=== PATIENT | female | born 1940 | race Caucasian/White ===

== ENCOUNTER 2017-05-20 10:22 | Day surgery (SDC) | payer MEDICARE, OTHER ==
[~2017-05-20] VITALS: Ht 154.9 cm; Wt 56.6 kg
[~2017-05-20 10:22] MED LIST: AMIT10 PO; Amitriptyline H25 MG PO; CHOL10002 PO; GABA300T24 PO; GRALISE600 MG PO; LEVSOD75 PO; Omeprazole20 M1 PO; THYROID MED
--- NOTE | 2017-05-20 12:12 | NUR ---
05/20/17 1212 Nghia Pimentel PT UPDATED ON DELAY IN ROOM DUE TO PREVIOUS CASE RUNNING LONG. PT DENIES ANY NEEDS AT THIS TIME. WILL CONTINUE TO KEEP PT UPDATED.
== END 2017-05-20 13:52 | disposition home or self-care (01) ==
LOC: ORSCSDS 10:22
PROVIDERS: Internal Medicine Gastroenterology
PROC: 0DBK8ZX Excision of Ascending Colon, Via Natural or Artificial Opening Endoscopic, Diagnostic (ICD-10-PCS; principal; 2017-05-20 11:30)
PROC: 0DBH8ZX Excision of Cecum, Via Natural or Artificial Opening Endoscopic, Diagnostic (ICD-10-PCS; principal; 2017-05-20 11:30)
DX: Z12.11 Encounter for screening for malignant neoplasm of colon (principal); D12.2 Benign neoplasm of ascending colon; D12.0 Benign neoplasm of cecum; K57.30 Diverticulosis of large intestine without perforation or abscess without bleeding; J45.909 Unspecified asthma, uncomplicated; E03.9 Hypothyroidism, unspecified; R74.8 Abnormal levels of other serum enzymes; Z79.899 Other long term (current) drug therapy
CPT/HCPCS: 88305; J7120

== ENCOUNTER → 2018-02-14 | Outpatient (CLI) | payer MEDICARE, OTHER ==
[~2018-02-14] MED LIST changes: +VITAMIN D2000 UNIT PO
== END | disposition home or self-care (01) ==
LOC: LAB SHORT 16:35 → LAB EV 16:35
DX: N39.0 Urinary tract infection, site not specified (principal)
CPT/HCPCS: 87077; 87086; 87186

== ENCOUNTER → 2018-08-21 | Outpatient (CLI) | payer MEDICARE, OTHER ==
[2018-08-21 13:12] LABS: BASOPHILS ABSOLUTE AUTO 0.08 K/mm3 (0.00-0.23); BASOPHILS PERCENT AUTO 1 % (0-2); EOSINOPHILS ABSOLUTE AUTO 0.11 K/mm3 (0.00-0.68); EOSINOPHILS PERCENT AUTO 2 % (0-6); Hematocrit 40.3 % (33.0-51.0); Hemoglobin 13.6 g/dL (11.5-16.0); IMMATURE GRAN ABSOLUTE AUTO 0.03 K/mm3 (0.00-0.10); IMMATURE GRAN PERCENT AUTO 1 % (0-1); LYMPHOCYTES ABSOLUTE AUTO 1.51 K/mm3 (0.84-5.20); LYMPHOCYTES PERCENT AUTO 27 % (21-46); MONOCYTES ABSOLUTE AUTO 0.52 K/mm3 (0.16-1.47); MONOCYTES PERCENT AUTO 9 % (4-13); Mean Corpuscular HGB 31.1 pg (26.0-34.0); Mean Corpuscular HGB Conc 33.7 g/dL (31.5-36.5); Mean Corpuscular Volume 92 fL (80-100); Mean Platelet Volume 11.2 fL (9.1-12.4); NEUTROPHILS ABSOLUTE AUTO 3.36 K/mm3 (1.96-9.15); NEUTROPHILS PERCENT AUTO 60 % (41-73); Platelet Count 229 K/mm3 (150-400); RDW Coefficient Variation 12.7 % (11.7-14.2); Red Blood Cell Count 4.37 M/mm3 (3.80-5.20); White Blood Cell Count 5.61 K/mm3 (4.00-11.30)
[2018-08-21 14:14] LABS: Alanine Aminotransfer (ALT/SGP 15 U/L (12-78); Albumin, Blood 3.5 g/dL (3.4-5.0); Albumin/Globulin Ratio 1.1 (0.8-1.8); Alk Phos 90 U/L (50-136); Anion Gap 10 mmol/L (6-16); Aspartate Aminotrans (AST/SGOT 15 U/L (12-37); Blood Urea Nitrogen 23 mg/dL (8-24); Bun/Creatinine Ratio 32.9 (12.0-20.0); CO2, Blood 25 mmol/L (21-32); CPK Creatine Kinase 72 U/L (26-193); Chloride, Blood 107 mmol/L (98-108); Globulin, Blood 3.3 g/dL (2.2-4.0); Glomerular Filtration Rate >60 (60-); Glucose, Blood 100 mg/dL (70-99); Potassium, Blood 3.7 mmol/L (3.5-5.5); Sodium, Blood 142 mmol/L (136-145); Total Protein, Blood 6.8 g/dL (6.4-8.2)
[2018-08-21 14:16] LABS: Troponin I <0.015 ng/mL (0.000-0.040)
== END | disposition home or self-care (01) ==
LOC: LAB SHORT 13:04 → LAB EV 13:04
PROVIDERS: Physician Assistant
DX: R07.9 Chest pain, unspecified (principal); R53.83 Other fatigue
CPT/HCPCS: 80053; 82550; 84443; 84484; 85025; 85379

== ENCOUNTER 2018-08-24 14:02 | Observation (INO) | payer MEDICARE, OTHER ==
[~2018-08-24] VITALS: Ht 154.9 cm; Wt 57.8 kg
[~2018-08-24 14:02] MED LIST changes: -VITAMIN D2000 UNIT PO
[2018-08-24 14:33] LABS: BASOPHILS ABSOLUTE AUTO 0.08 K/mm3 (0.00-0.23); BASOPHILS PERCENT AUTO 1 % (0-2); EOSINOPHILS ABSOLUTE AUTO 0.06 K/mm3 (0.00-0.68); EOSINOPHILS PERCENT AUTO 1 % (0-6); Hematocrit 43.7 % (33.0-51.0); Hemoglobin 14.4 g/dL (11.5-16.0); IMMATURE GRAN ABSOLUTE AUTO 0.05 K/mm3 (0.00-0.10); IMMATURE GRAN PERCENT AUTO 1 % (0-1); LYMPHOCYTES ABSOLUTE AUTO 1.44 K/mm3 (0.84-5.20); LYMPHOCYTES PERCENT AUTO 20 % (21-46); MONOCYTES ABSOLUTE AUTO 0.43 K/mm3 (0.16-1.47); MONOCYTES PERCENT AUTO 6 % (4-13); Mean Corpuscular Volume 94 fL (80-100); Mean Platelet Volume 10.8 fL (9.1-12.4); NEUTROPHILS ABSOLUTE AUTO 5.32 K/mm3 (1.96-9.15); NEUTROPHILS PERCENT AUTO 72 % (41-73); Platelet Count 243 K/mm3 (150-400); RDW Coefficient Variation 12.6 % (11.7-14.2); RDW Standard Deviation 43.3 fL (35.1-46.3); Red Blood Cell Count 4.65 M/mm3 (3.80-5.20); White Blood Cell Count 7.38 K/mm3 (4.00-11.30)
[2018-08-24 14:51] LABS: Alanine Aminotransfer (ALT/SGP 17 U/L (12-78); Albumin, Blood 3.7 g/dL (3.4-5.0); Albumin/Globulin Ratio 0.9 (0.8-1.8); Alk Phos 94 U/L (50-136); Anion Gap 8 mmol/L (6-16); Aspartate Aminotrans (AST/SGOT 19 U/L (12-37); Bilirubin, Total 0.7 mg/dL (0.1-1.0); Blood Urea Nitrogen 23 mg/dL (8-24); Bun/Creatinine Ratio 34.4 (12.0-20.0); CO2, Blood 24 mmol/L (21-32); Chloride, Blood 104 mmol/L (98-108); Creatinine, Blood 0.67 mg/dL (0.40-1.00); Globulin, Blood 4.1 g/dL (2.2-4.0); Glomerular Filtration Rate >60 (60-); Glucose, Blood 134 mg/dL (70-99); Magnesium, Blood 2.1 mg/dL (1.6-2.4); Potassium, Blood 3.8 mmol/L (3.5-5.5); Sodium, Blood 136 mmol/L (136-145); Total Protein, Blood 7.8 g/dL (6.4-8.2); Troponin I <0.015 ng/mL (0.000-0.040)
[2018-08-24 17:28] LABS: CPK Creatine Kinase 64 U/L (26-193); Creatine Kinase MB Index 3.1 (0.0-4.0); Troponin I <0.015 ng/mL (0.000-0.040)
[2018-08-24 18:16] LABS: Source, Urine Clean Catch
[2018-08-24 18:23] LABS: Bilirubin, Urine Neg (Neg); Blood, Urine Neg (Neg); Glucose Qualitative, Urine Neg (Neg); Ketones, Urine Neg (Neg); Leukocyte Esterase, Urine 1+ (Neg); Nitrite, Urine Neg (Neg); Protein, Urine Neg (Neg); Specific Gravity, Urine 1.015 (1.003-1.022); Urobilinogen, Urine NORM (Normal); pH, Urine 6.5 (5.0-8.0)
[2018-08-24 18:34] LABS: Appearance, Urine Clear (Clear); Color, Urine Pale Yellow (P-Yellow)
[2018-08-24 18:36] LABS: Bacteria Rare /hpf; Red Blood Cells, Urine Rare /hpf (0-2); Squamous Epithelial Cells Few /hpf (Few); Transitional Epithelial Cells Rare /hpf (0-Rare); White Blood Cells, Urine Rare /hpf (0-5)
[2018-08-24 22:49] LABS: Troponin I <0.015 ng/mL (0.000-0.040)
[2018-08-24 22:55] LABS: CPK Creatine Kinase 68 U/L (26-193); Creatine Kinase MB 1.9 ng/mL (0.0-3.6); Creatine Kinase MB Index 2.8 (0.0-4.0)
[2018-08-25 06:22] LABS: BASOPHILS ABSOLUTE AUTO 0.06 K/mm3 (0.00-0.23); BASOPHILS PERCENT AUTO 1 % (0-2); EOSINOPHILS ABSOLUTE AUTO 0.15 K/mm3 (0.00-0.68); EOSINOPHILS PERCENT AUTO 3 % (0-6); Hematocrit 39.8 % (33.0-51.0); IMMATURE GRAN ABSOLUTE AUTO 0.02 K/mm3 (0.00-0.10); IMMATURE GRAN PERCENT AUTO 0 % (0-1); LYMPHOCYTES ABSOLUTE AUTO 2.19 K/mm3 (0.84-5.20); LYMPHOCYTES PERCENT AUTO 36 % (21-46); MONOCYTES ABSOLUTE AUTO 0.59 K/mm3 (0.16-1.47); MONOCYTES PERCENT AUTO 10 % (4-13); Mean Corpuscular HGB Conc 32.7 g/dL (31.5-36.5); Mean Corpuscular Volume 95 fL (80-100); Mean Platelet Volume 10.7 fL (9.1-12.4); NEUTROPHILS ABSOLUTE AUTO 3.06 K/mm3 (1.96-9.15); NEUTROPHILS PERCENT AUTO 50 % (41-73); Platelet Count 218 K/mm3 (150-400); RDW Coefficient Variation 12.6 % (11.7-14.2); RDW Standard Deviation 43.7 fL (35.1-46.3); Red Blood Cell Count 4.19 M/mm3 (3.80-5.20); White Blood Cell Count 6.07 K/mm3 (4.00-11.30)
[2018-08-25 06:38] LABS: Anion Gap 8 mmol/L (6-16); Blood Urea Nitrogen 23 mg/dL (8-24); Bun/Creatinine Ratio 29.4 (12.0-20.0); CO2, Blood 25 mmol/L (21-32); Calcium, Blood 8.5 mg/dL (8.5-10.1); Chloride, Blood 108 mmol/L (98-108); Cholesterol 234 mg/dL (50-200); Creatinine, Blood 0.78 mg/dL (0.40-1.00); Glomerular Filtration Rate >60 (60-); Glucose, Blood 86 mg/dL (70-99); Potassium, Blood 3.6 mmol/L (3.5-5.5); Sodium, Blood 141 mmol/L (136-145); Triglycerides 147 mg/dL (30-160)
--- NOTE | 2018-08-25 19:14 | NUR ---
PATIENT A/OX4, UP INDEPENDENTLY IN ROOM. DENIES ANY CHEST PAIN THIS SHIFT. VSS. SR/SB ON TELE. TOLERATING CARDIAC DIET. VSS THIS SHIFT. AWAITING RESULTS OF ECHO DONE THIS AM. CALM AND COOPERATIVE WITH CARE, CALLS APPROPRIATELY FOR ASSISTANCE.
[2018-08-26 04:56] LABS: Hematocrit 39.7 % (33.0-51.0); Mean Corpuscular HGB Conc 32.7 g/dL (31.5-36.5); Mean Corpuscular Volume 95 fL (80-100); Platelet Count 216 K/mm3 (150-400); RDW Coefficient Variation 12.5 % (11.7-14.2); RDW Standard Deviation 43.3 fL (35.1-46.3); Red Blood Cell Count 4.19 M/mm3 (3.80-5.20); White Blood Cell Count 6.74 K/mm3 (4.00-11.30)
[2018-08-26 05:17] LABS: Anion Gap 7 mmol/L (6-16); Blood Urea Nitrogen 22 mg/dL (8-24); Bun/Creatinine Ratio 24.6 (12.0-20.0); CO2, Blood 25 mmol/L (21-32); Calcium, Blood 8.6 mg/dL (8.5-10.1); Chloride, Blood 109 mmol/L (98-108); Glomerular Filtration Rate >60 (60-); Glucose, Blood 83 mg/dL (70-99); Potassium, Blood 3.8 mmol/L (3.5-5.5); Sodium, Blood 141 mmol/L (136-145)
--- NOTE | 2018-08-26 05:29 | NUR ---
SHIFT SUMMARY PT REPORTS SHE SLEPT WELL. AOX4. VSS. DENIES N/V. THIS AM PT REPORTED SHE HAD CHEST PAIN/PRESSURE MIDSTERNUM LAST NIGHT BEFORE MIDNIGHT AFTER SHE FINISHED BRUSHING HER TEETH, PT REPORTS FEELING A LITTLE SOB WHEN THIS PAIN OCCURED & PAIN WENT AWAY ROUGHLY 30MIN AFTER RESTINGN IN BED. ENCOURAGED PT TO USE CALL LIGHT TO INFORM NURSE IF CHEST PAIN OCCURS AGAIN. NO FURTHER CHEST DISCOMFORT THIS AM. PT SINUS SANA W/HR 58 PER TELE LABELING STRATEGIST. PT INDEPENDENT IN ROOM. CALL LIGHT IS IN REACH & I WCTM PT UNTIL DAY SHIFT RN ASSUMES CARE.
--- NOTE | 2018-08-26 06:01 | NUR ---
CHEST PAIN PT RPTS 3/10 CHEST PAIN/DISCOMFORT/PRESSURE THAT LASTED ROUGHLY 5 MIN. PT STATES SHE FELT SOB W/DISCOMFORT & IT HAD WOKEN HER UP FROM SLEEP. CALLED PCU TELE MONITOR & THEY REPORTED PT WAS SINUS SANA W/HR 55 & ROUGHLY 5 MIN PREVIOUS PTS RHYTHM WAS NSR W/HR IN HIGH 60'S-LOW 70'S. PT DENIES SHE NEEDS ANYTHING FOR PAIN @THIS TIME, I WILL CONT TO MONITOR.
--- NOTE | 2018-08-26 07:24 | NUR ---
CHEST PAIN PT REPORTED 6/10 SHARP CHEST PAIN AROUND 0640. STATED PAIN WAS LOCATED MIDSTERNUM & RAIDIATED UNDER LEFT BREAST. PT ALSO REPORTED INCREASED SOB W/PAIN. BP WAS INCREASED 166/85, WHICH PT REPORTED HIGH FOR HER & TELE LINOLEUM FLOOR LAYER STATED PT WAS NSR W/HR IN THE 60'S. WENT TO BRING IN NITRO TO PT & CHEST PAIN HAD RESOLVED & PT DENIED ANY NEED FOR IT @ THIS TIME. TOTAL TIME PT HAD CHEST PAIN WAS ROUGHLY 15MIN LONG. NOTIFIED DAY SHIFT RN OF CHEST PAIN & EKG IS GOING TO BE PERFORMED THIS AM.
--- NOTE | 2018-08-26 08:06 | NUR ---
NITRO GIVEN AT 0745 FOR 3/10 CHEST PAIN THAT RADIATES TO L SHOULDER. NITRO RELIEVED PAIN. AT 0800 PATIENT REPORTS PAIN 5/10 IN CHEST THAT RADIATES TO HER NECK. 2ND DOSE OF NITRO GIVEN WITH STATED RELIEF OF CHEST PAIN.
--- NOTE | 2018-08-26 09:21 | NUR ---
PATIENT REPOTS 8/10 CHEST PAIN, UNRELIEVED BY MORPHINE. 3RD DOSE OF NITRO GIVEN TO TREAT.
--- NOTE | 2018-08-26 10:58 | NUR ---
PATIENT CONITNUES TO HAVE 6/10 CHEST PAIN THAT RADIATES TO HER BACK. SPOKE WITH DR. MENDIOLA TO UPDATE HIM ABOUT HER PAIN. NITRO PATCH IS CURRENTLY IN PLACE. MD ORDERED A CRP/SED RATE AND A REPEAT CHEST X-RAY.
--- NOTE | 2018-08-26 18:22 | NUR ---
PATIENT CONTINUES TO REPORT CHEST PAIN, BUT IT HAS SUBSIDED. SR/SB ON TELE. RESTING PORTION OF STRESS TEST DONE THIS AFTERNOON. SECOND PART TO BE DONE TOMORROW. NITRO PATCH REMOVED AT 1215 TODAY SO THAT PATIENT COULD GET THE STRESS TEST TOMORROW. CHEST X-RAY TODAY WAS NEGATIVE. PATIENT UP WITH SBA. DOES HAVE SOME SOB AND O2 USED INTERMITTENTLY, MAINTAINING SATS ON RA. TOLERATING CARDIAC DIET. MORPHINE GIVEN X1 THIS SHIFT, BUT PATIENT REPORTS IT DIDN'T HELP THE PAIN.
--- NOTE | 2018-08-26 23:23 | NUR ---
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 SHE'S PREVIOUSLY BEEN NSR AND SINUS SANA BUT HR HADN'T DROPPED BELOW 50'S. IT'S DIFFICULT TO DETERMINE IF SHE IS SYMPTOMATIC OF THIS CHANGE IN HR D/T THE PT HAVING CP THAT COMES/GOES SINCE PREVIOUS NOCTE SHIFT. SHE IS TO HAVE STRESS TEST IN THE AM SO NTG IS ON HOLD. DOMI RECOMMENDED CHANGING MORPHINE TO 2MG IV Q2H PRN AND MEDICALLY MANAGING HER PAIN W/THAT WHILE CONTINUING TO MONITOR CLOSELY FOR CHANGES/WORSENING.
--- NOTE | 2018-08-27 01:09 | NUR ---
PT C/O CP "RAMPING UP AGAIN" AT 0025. PT HR BACK UP TO 64 BPM IN NSR PER TELEMETRY. MORPHINE 2MG IV PRN PROVIDED AND PT ADMITTED RELIEF REFERRING TO IT "A DULL ACHE" AND 2/10. SHE IS NOW SLEEPING W/O S/S PAIN.
[2018-08-27 04:53] LABS: BASOPHILS ABSOLUTE AUTO 0.05 K/mm3 (0.00-0.23); BASOPHILS PERCENT AUTO 1 % (0-2); EOSINOPHILS ABSOLUTE AUTO 0.18 K/mm3 (0.00-0.68); EOSINOPHILS PERCENT AUTO 5 % (0-6); Hematocrit 40.8 % (33.0-51.0); Hemoglobin 13.2 g/dL (11.5-16.0); IMMATURE GRAN ABSOLUTE AUTO 0.01 K/mm3 (0.00-0.10); IMMATURE GRAN PERCENT AUTO 0 % (0-1); LYMPHOCYTES ABSOLUTE AUTO 0.92 K/mm3 (0.84-5.20); LYMPHOCYTES PERCENT AUTO 24 % (21-46); MONOCYTES ABSOLUTE AUTO 0.42 K/mm3 (0.16-1.47); MONOCYTES PERCENT AUTO 11 % (4-13); Mean Corpuscular HGB 31.1 pg (26.0-34.0); Mean Corpuscular HGB Conc 32.4 g/dL (31.5-36.5); Mean Corpuscular Volume 96 fL (80-100); Mean Platelet Volume 10.9 fL (9.1-12.4); NEUTROPHILS ABSOLUTE AUTO 2.26 K/mm3 (1.96-9.15); NEUTROPHILS PERCENT AUTO 59 % (41-73); Platelet Count 209 K/mm3 (150-400); RDW Coefficient Variation 12.5 % (11.7-14.2); RDW Standard Deviation 44.2 fL (35.1-46.3); Red Blood Cell Count 4.24 M/mm3 (3.80-5.20); White Blood Cell Count 3.84 K/mm3 (4.00-11.30)
[2018-08-27 05:14] LABS: Anion Gap 7 mmol/L (6-16); Blood Urea Nitrogen 27 mg/dL (8-24); Bun/Creatinine Ratio 31.5 (12.0-20.0); CO2, Blood 26 mmol/L (21-32); Calcium, Blood 8.7 mg/dL (8.5-10.1); Chloride, Blood 106 mmol/L (98-108); Creatinine, Blood 0.86 mg/dL (0.40-1.00); Glomerular Filtration Rate >60 (60-); Glucose, Blood 108 mg/dL (70-99); Potassium, Blood 3.7 mmol/L (3.5-5.5); Sodium, Blood 139 mmol/L (136-145)
--- NOTE | 2018-08-27 05:16 | NUR ---
SUMMARY: A/OX4, PLEASANT AND COOPERATIVE AND SPECIFIES NEEDS. SHE'S CONTINUED TO HAVE CONSTANT DULL CP THAT RADIATES TO HER BACK AND UP HER NECK AT TIMES. SHE ADMITS IT "RAMPS UP TO 5-6/10 AND THEN BECOMES STABBING" IN NATURE. MORPHINE WAS RECIEVED X3 DOSES DURING THESE TIMES FOR BRIEF IMPROVEMENT TO 2-3/10. SHE IS NSR/S.SANA ON TELEMETRY W/HR 50'S-60'S T/O NOCTE BUT DID HAVE A 10 MIN PERIOD OF HR DROPPING AND SUSTAINING 30'S. DOMI HELICOPTER PILOT NOTIFIED AND NO NEW ORDERS WERE RECIEVED OTHER THEN A CHANGE IN MORPHINE FREQUENCY. PT WAS ALSO BRIEFLY PLACED ON 2L O2 DURING CP BUT DOMI STATED IT "WAS NOT NECESARY FOR ANGINA PT'S AND COULD BE HARMFUL" SO WAS DC'D. SPO2 IS >90% ON RA NOW. SHE IS NPO EXCEPT ICE AT THIS TIME FOR STRESS TEST THIS AM. SHE FEELS WEAK AND TIRED R/T CARDIAC SYMPTOMS. SHE'S DENIED NAUSEA AND ALL OTHER COMPLAINTS THIS SHIFT. NO ACUTE CHANGES, VSS/AFEBRILE. WILL MONITOR AND REPORT TO DAY RN.
--- NOTE | 2018-08-27 18:22 | NUR ---
SHIFT SUMMARY PT INDEPENDENT TO BATHROOM. WAS REPORTING FEELING VERY POORLY THIS MORNING. STATED SHE FELT COMPLETELY OUT OF ENERGY AND DIDN'T EVEN HAVE ENOUGH TO EAT BREAKFAST. VSS AT THE TIME. CHECKED BLOOD GLUCOSE AFTER REPORT OF HYPOGLYCEMIA AND WAS STABLE. O2 PLACED ON HER AT THE TIME DUE TO SATS BEING LOW 90'S. SHORTLY AFTERWARD SHE FELL ASLEEP AND WOKE UP FEELING MUCH BETTER. HAS IMPROVED THROUGH DAY. REMOVED O2 AFTER SHE WOKE UP. STRESS PORTION OF TEST COMPLETED. MD IN TO SEE PT THIS EVENING WITH PLANS TO DISCHARGE [facility].
[2018-08-27] MEDS ORDERED: ACET325 PO (18:28)
[2018-08-27] MEDS ORDERED: ASPI81CH PO (18:28)
[2018-08-27] MEDS ORDERED: ATEN25 PO (18:29)
[2018-08-27] MEDS ORDERED: ATOR10 PO (18:29)
[2018-08-27] MEDS ORDERED: NITR.4SL SL (18:31)
[2018-08-27] MEDS ORDERED: PANT20 PO (18:31)
--- NOTE | 2018-08-27 19:22 | NUR ---
DISCHARGE INSTRUCTIONS COMPLETED AND DISCUSSED WITH PT EXPRESSING UNDERSTANDING. HERE TO PICK PT UP. TO [facility] VIA W/C.
== END 2018-08-27 19:15 | disposition home or self-care (01) ==
LOC: ER 14:02 → ERHOLD 14:03 → MEDS 08-25 09:50
PROVIDERS: Physician Assistant; ADMIT Family Medicine
DX: R07.9 Chest pain, unspecified (principal); K21.9 Gastro-esophageal reflux disease without esophagitis; E03.9 Hypothyroidism, unspecified; M54.9 Dorsalgia, unspecified; G89.29 Other chronic pain; Z88.1 Allergy status to other antibiotic agents; Z88.0 Allergy status to penicillin; Z88.2 Allergy status to sulfonamides; Z79.899 Other long term (current) drug therapy; Z79.01 Long term (current) use of anticoagulants
CPT/HCPCS: 36415; 71046; 78452; 80048; 80053; 81001; 82465; 82550; 82553; 82947; 83735; 83880; 84443; 84478; 84484; 85025; 85027; 85379; 85651; 86140; 87086; 93005; 93010; 93017; 93306; 96361; 96372; 96372-59; 96374; 96375; 96376; 99285-25; A9500; C9113; G0378; J0706; J1650; J2270; J2785; J7030

== ENCOUNTER → 2021-12-15 | Outpatient (CLI) | payer MEDICARE, OTHER ==
[~2021-12-15] MED LIST changes: +ACET325 PO; +ASPI81CH PO; +ATEN25 PO; +ATOR10 PO; +NITR.4SL SL; +PANT20 PO
[2021-12-15 11:41] LABS: BASOPHILS PERCENT AUTO 2 % (0-2); EOSINOPHILS ABSOLUTE AUTO 0.14 K/mm3 (0.00-0.68); EOSINOPHILS PERCENT AUTO 2 % (0-6); Hematocrit 39.6 % (33.0-51.0); Hemoglobin 13.4 g/dL (11.5-16.0); IMMATURE GRAN ABSOLUTE AUTO 0.02 K/mm3 (0.00-0.10); IMMATURE GRAN PERCENT AUTO 0 % (0-1); LYMPHOCYTES ABSOLUTE AUTO 1.35 K/mm3 (0.84-5.20); LYMPHOCYTES PERCENT AUTO 23 % (21-46); MONOCYTES ABSOLUTE AUTO 0.56 K/mm3 (0.16-1.47); MONOCYTES PERCENT AUTO 9 % (4-13); Mean Corpuscular HGB 31.8 pg (26.0-34.0); Mean Corpuscular HGB Conc 33.8 g/dL (31.5-36.5); Mean Corpuscular Volume 94 fL (80-100); Mean Platelet Volume 10.7 fL (9.1-12.4); NEUTROPHILS ABSOLUTE AUTO 3.79 K/mm3 (1.96-9.15); NEUTROPHILS PERCENT AUTO 64 % (41-73); Platelet Count 241 K/mm3 (150-400); RDW Coefficient Variation 12.9 % (11.7-14.2); RDW Standard Deviation 44.2 fL (35.1-46.3); Red Blood Cell Count 4.21 M/mm3 (3.80-5.20); White Blood Cell Count 5.96 K/mm3 (4.00-11.30)
[2021-12-15 11:51] LABS: Albumin, Blood 3.8 g/dL (3.4-5.0); Bun/Creatinine Ratio 22.2 (12.0-20.0); Calcium, Blood 9.4 mg/dL (8.5-10.1); Creatinine, Blood 0.99 mg/dL (0.40-1.00); Globulin, Blood 3.7 g/dL (2.2-4.0); Potassium, Blood 3.9 mmol/L (3.5-5.5); Total Protein, Blood 7.5 g/dL (6.4-8.2)
== END | disposition home or self-care (01) ==
LOC: LAB SHORT 11:31
PROVIDERS: Physician Assistant
DX: E03.9 Hypothyroidism, unspecified (principal); R07.89 Other chest pain
CPT/HCPCS: 80053; 83880; 84443; 84484; 85025

== ENCOUNTER 2024-04-06 22:06 | Emergency (ER) | payer MEDICARE, OTHER ==
[~2024-04-06] VITALS: Ht 154.9 cm; Wt 70.3 kg
[2024-04-06 22:37] LABS: BASOPHILS ABSOLUTE AUTO 0.07 K/mm3 (0.00-0.23); BASOPHILS PERCENT AUTO 0 % (0-2); EOSINOPHILS ABSOLUTE AUTO 0.05 K/mm3 (0.00-0.68); EOSINOPHILS PERCENT AUTO 0 % (0-6); Hematocrit 45.9 % (33.0-51.0); Hemoglobin 15.6 g/dL (11.5-16.0); IMMATURE GRAN ABSOLUTE AUTO 0.14 K/mm3 (0.00-0.10); IMMATURE GRAN PERCENT AUTO 1 % (0-1); LYMPHOCYTES ABSOLUTE AUTO 0.41 K/mm3 (0.84-5.20); LYMPHOCYTES PERCENT AUTO 2 % (21-46); MONOCYTES ABSOLUTE AUTO 0.82 K/mm3 (0.16-1.47); MONOCYTES PERCENT AUTO 5 % (4-13); Mean Corpuscular HGB 31.5 pg (26.0-34.0); Mean Corpuscular Volume 93 fL (80-100); Mean Platelet Volume 10.1 fL (9.1-12.4); NEUTROPHILS ABSOLUTE AUTO 16.84 K/mm3 (1.96-9.15); NEUTROPHILS PERCENT AUTO 92 % (41-73); Platelet Count 300 K/mm3 (150-400); RDW Coefficient Variation 12.9 % (11.7-14.2); RDW Standard Deviation 44.1 fL (35.1-46.3); Red Blood Cell Count 4.96 M/mm3 (3.80-5.20); White Blood Cell Count 18.33 K/mm3 (4.00-11.30)
[2024-04-06 22:58] LABS: Albumin, Blood 3.8 g/dL (3.4-5.0); Bilirubin, Total 1.4 mg/dL (0.1-1.0); Bun/Creatinine Ratio 40.1 (12.0-20.0); Calcium, Blood 9.7 mg/dL (8.5-10.1); Creatinine, Blood 0.85 mg/dL (0.40-1.00); Total Protein, Blood 7.8 g/dL (6.4-8.2)
[2024-04-07 00:43] LABS: Influenza A, PCR NEGATIVE (NEGATIVE); Influenza B, PCR NEGATIVE (NEGATIVE); Resp Syncytial Virus, PCR NEGATIVE (NEGATIVE); SARS-Cov-2 (COVID-19) PCR, MMC NEGATIVE (NEGATIVE)
[2024-04-07] MEDS ORDERED: NS 1,000 ML IV SCH (01:25)
[2024-04-07 02:24] VITALS: BP 127/58
[2024-04-07] MEDS ORDERED: ONDA4ODT MM (04:03)
== END 2024-04-07 04:11 | disposition home or self-care (01) ==
LOC: ER 22:06
PROVIDERS: Emergency Medicine
DX: B34.9 Viral infection, unspecified (principal); I10 Essential (primary) hypertension; K21.9 Gastro-esophageal reflux disease without esophagitis; E78.5 Hyperlipidemia, unspecified; E03.9 Hypothyroidism, unspecified; Z79.890 Hormone replacement therapy; Z79.899 Other long term (current) drug therapy; Z79.82 Long term (current) use of aspirin; Z88.0 Allergy status to penicillin; Z88.2 Allergy status to sulfonamides; Z88.1 Allergy status to other antibiotic agents; Z88.5 Allergy status to narcotic agent
CPT/HCPCS: 0241U; 71046; 76705; 80053; 83690; 84484; 85025; 93005; 93010; 96360; 99284-25; J7030